=== PATIENT | male | born 1960 | race Two or more races ===

== ENCOUNTER 2023-05-29 09:26 | Outpatient (OUT) | payer MEDICARE, SELFPAY ==
--- NOTE | 2023-05-29 09:47 | XR_ITS ---
The [address] [address] Patient Name: KINDRA CHENG MRN: [id number] date: 1960 Sex: M Assigned Patient Location: LAB Current Patient Location: LAB Accession/Order Number: [id number] Exam Date: 05/29/2023 09:40 Report Date: 05/29/2023 10:29 At the request of: NICOLE WELLER Procedure: XR chest 2V EXAM: XR chest 2V HISTORY: Shortness Of Breath R06.02, Mild Asthma J45.20 COMPARISON: None. TECHNIQUE: PA and lateral views of the chest. FINDINGS: The cardiomediastinal silhouette is normal. No focal consolidation is identified. There is no pneumothorax. No pleural effusion is noted. The osseous structures are intact. XR/XR chest 2V IMPRESSION: No acute cardiopulmonary process. Electronically authenticated by: ANA PAULA VILLARREAL Date: 05/29/2023 10:29
[2023-05-29 10:11] LABS: Basophils Percent Auto 0.4 % (0.2-2.0); Eosinophils Absolute Auto 0.2 10^3/uL (0.0-0.7); Hematocrit 36.4 % (42.0-54.0); Hemoglobin 11.8 g/dL (14.0-18.0); Immature Granulocytes Abs Auto 0.02 10^3/uL (0.00-0.03); Immature Granulocytes Pct Auto 0.3 % (0.0-0.5); Lymphocytes Absolute Auto 1.2 10^3/uL (1.2-3.8); Lymphocytes Percent Auto 15.3 % (20.5-60.0); Mean Corpuscular HGB Conc 32.4 g/dL (29.9-35.2); Mean Corpuscular Volume 101.7 fL (80.0-94.0); Mean Platelet Volume 10.8 fL (9.5-13.5); Monocytes Absolute Auto 0.6 10^3/uL (0.3-0.8); Monocytes Percent Auto 7.4 % (1.7-12.0); Neutrophils Absolute Auto 5.9 10^3/uL (1.4-6.5); Neutrophils Percent Auto 73.6 % (43.0-75.0); Platelet Count 108 10^3/uL (150-450); Red Blood Count 3.58 10^6/uL (4.70-6.10); Red Cell Distribution Width 13.1 % (11.0-15.0)
[2023-05-29 10:55] LABS: Alanine Aminotransferase 32 U/L (16-63); Albumin Globulin Ratio 0.8; Albumin Level 3.3 g/dL (3.4-5.0); Alkaline Phosphatase 128 U/L (46-116); Anion Gap 12.9; Aspartate Amino Transferase 25 U/L (15-37); BUN Creatinine Ratio 21.8; Bilirubin Total 0.6 mg/dL (0.2-1.0); Calcium 8.7 mg/dL (8.5-10.1); Carbon Dioxide 27.6 mmol/L (21.0-32.0); Chloride 106 mmol/L (98-107); Estimated GFR (African America >60 (>=60); Estimated GFR (Non-African Ame >60 (>=60); Globulin 3.9 g/dL; Glucose 83 mg/dL (74-106); Potassium 4.5 mmol/L (3.5-5.1); Sodium 142 mmol/L (136-145); Total Protein 7.2 g/dL (6.4-8.2)
== END 2023-05-29 09:27 | disposition home or self-care (01) ==
LOC: LAB 09:29
PROVIDERS: PCP Family Medicine; Visit Provider Physician Assistant
DX: J45.20 Mild intermittent asthma, uncomplicated (principal); R06.02 Shortness of breath; I89.0 Lymphedema, not elsewhere classified
CPT/HCPCS: 36415; 71046; 80053; 83880; 85025

== ENCOUNTER 2024-02-11 15:58 | Outpatient (OUT) | payer MEDICARE, SELFPAY ==
--- NOTE | 2024-02-11 16:06 | XR_ITS ---
The [address] [address] Patient Name: KINDRA CHENG MRN: [id number] date: 1960 Sex: M Assigned Patient Location: [facility] Current Patient Location: Accession/Order Number: [id number] Exam Date: 02/11/2024 16:07 Report Date: 02/13/2024 06:39 At the request of: MUKUND TEMPLE Procedure: XR abdomen min 2V EXAMINATION: XR abdomen min 2V HISTORY: Slow transit constipation K59.01 COMPARISON: No relevant comparison available. FINDINGS: BOWEL GAS PATTERN: Non-obstructed. No appreciable abnormal dilation or significant stool burden. FREE AIR: None. CALCIFICATIONS: None significant. BONES: No fracture or visible bone lesion. OTHER: Negative. XR/XR abdomen min 2V IMPRESSION: 1. Evaluation is limited by patient body habitus. 2. No bowel obstruction or appreciable significant stool burden. Electronically authenticated by: DEBRA COLEMAN Date: 02/13/2024 06:39
== END 2024-02-11 15:59 | disposition home or self-care (01) ==
LOC: RAD 16:00
PROVIDERS: PCP Family Medicine; Visit Provider Family Medicine
DX: K59.01 Slow transit constipation (principal)
CPT/HCPCS: 74019

== ENCOUNTER 2024-04-30 11:25 | Emergency (ER) | payer MEDICARE, SELFPAY ==
[2024-04-30] VITALS (29 sets, daily range): BP systolic 92–120; BP diastolic 63–80; PULSE 103–124; RESP 12; TEMP 36.5; O2SAT 88–100
--- NOTE | 2024-04-30 11:33 | XR_ITS ---
The [address] [address] Patient Name: KINDRA CHENG MRN: [id number] date: 1960 Sex: M Assigned Patient Location: ER Current Patient Location: ER Accession/Order Number: [id number] Exam Date: 04/30/2024 11:40 Report Date: 04/30/2024 11:54 At the request of: CORINA SAUCEDA Procedure: XR chest 1V EXAM: Chest x-ray HISTORY: Shortness of breath COMPARISON: 05/29/2023 TECHNIQUE: Review of the chest FINDINGS: Heart and vascularity are unremarkable. Right lung is unremarkable. Increased markings are noted in the left perihilar region extending into the left mid and lower lung field. There is elevation left hemidiaphragm compared to the right. EKG leads overlie the chest. XR/XR chest 1V IMPRESSION: 1. Increased markings in the left perihilar region either due to atelectasis or an early left perihilar infiltrate. No consolidation. 2. Elevation left hemidiaphragm compared to the right. Electronically authenticated by: GARRETT URBANO Date: 04/30/2024 11:54
--- NOTE | 2024-04-30 11:33 | ECG_ITS ---
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
[2024-04-30] MEDS: LORAZEPAM 2 MG/ML VIAL 1 MG IV (11:41)
--- NOTE | 2024-04-30 11:48 | ED.SOB1 ---
HPI - SOB/Dyspnea General Chief Complaint: Shortness of Breath/Dyspnea Stated Complaint: SOB Time Seen by Provider: 04/30/24 11:32 Source: patient Mode of arrival: ambulance Limitations: no limitations History of Present Illness HPI Narrative: Patient presents to ED via EMS for shortness of breath. He said this is his worst it has ever been but he does get short of breath sometimes. He is on BiPAP at night. He has a history of CHF COPD and ascites. He had a paracentesis last week. He said everything is always done at [facility] and he requested to go there but he was brought here instead. He reports feeling anxious. Mild chest tightness and respiratory distress. Upon arrival EMS states he was 88% on room air. He was placed on 3 L nasal cannula and improved to 96%. Patient has been tachycardic. He has lower extremity edema which is chronic for him and he states they have been working on that. Denies abdominal pain. Alert and oriented, No fever Related Data Allergies Allergy/AdvReac Type Severity Reaction Status Date / Time tetanus and diphtheria Allergy Mild Unknown Verified 04/30/24 11:29 toxoids Review of Systems ROS Status of ROS 10 or more systems reviewed and unremarkable except as noted in history and below Exam Constitutional Vital Signs, click to edit/add: Last Vital Signs Temp 97.7 F 04/30/24 11:29 Pulse 124 H 04/30/24 11:29 Resp 21 H 04/30/24 12:09 BP 116/65 04/30/24 11:29 Pulse Ox 95 04/30/24 12:09 O2 Del Method BIPAP 04/30/24 12:09 O2 Flow Rate 40 04/30/24 12:09 FiO2 40 04/30/24 12:09 Course Vital Signs Vital signs: Vital Signs Temperature 97.7 F 04/30/24 11:29 Pulse Rate 124 H 04/30/24 11:29 Respiratory Rate 32 H 04/30/24 11:29 Blood Pressure 116/65 04/30/24 11:29 Pulse Oximetry 89 L 04/30/24 11:29 Oxygen Delivery Method Nasal Cannula 04/30/24 11:29 Oxygen Delivery Flow Rate 3 04/30/24 11:29 Temperature 97.7 F 04/30/24 11:29 Pulse Rate 124 H 04/30/24 11:29 Respiratory Rate 21 H 04/30/24 12:09 Blood Pressure 116/65 04/30/24 11:29 Pulse Oximetry 95 04/30/24 12:09 Oxygen Delivery Method BIPAP 04/30/24 12:09 Oxygen Delivery Flow Rate 40 04/30/24 12:09 Fraction of Inspired Oxygen 40 04/30/24 12:09 MDM - SOB/Dyspnea MDM Narrative Medical decision making narrative: Patient was in respiratory distress and immediately placed on BiPAP. He was also anxious and given some Ativan. After BiPAP and DuoNeb as well as Ativan he was feeling a little bit better. He reports that he gets everything done at [facility] including multiple paracentesis. He wants to be transferred over to [facility]. Patient has pneumonia and elevated lactate consistent with sepsis. Antibiotics were started in ED. Patient was stabilized and I spoke to Dr. Chen who will accept the patient over to [facility], ICU. Patient was comfortable with care plan for transfer Differential Diagnosis Differential diagnosis: Likely acute exacerbation of chronic obstructive airways disease, congestive heart failure, community acquired pneumonia and pulmonary embolism Medical Records Attestation: I reviewed the patient's medical records. Lab Data Attestation: I reviewed the patient's lab results. Labs: Lab Results 04/30/24 04/30/24 Range/Units 11:33 11:36 WBC 11.1 H (4.0-11.0) 10^3/uL RBC 3.07 L (4.70-6.10) 10^6/uL Hgb 9.6 L (14.0-18.0) g/dL Hct 31.0 L (42.0-54.0) % MCV 101.0 H (80.0-94.0) fL MCH 31.3 (25.9-34.0) pg MCHC 31.0 (29.9-35.2) g/dL RDW 15.9 H (11.0-15.0) % Plt Count 257 (150-450) 10^3/uL MPV 10.2 (9.5-13.5) fL Neut % (Auto) 67.1 (43.0-75.0) % Lymph % (Auto) 11.7 L (20.5-60.0) % [place] % (Auto) 8.4 (1.7-12.0) % Eos % (Auto) 12.0 H (0.9-7.0) % Baso % (Auto) 0.5 (0.2-2.0) % Neut # (Auto) 7.5 H (1.4-6.5) 10^3/uL Lymph # (Auto) 1.3 (1.2-3.8) 10^3/uL [place] # (Auto) 0.9 H (0.3-0.8) 10^3/uL Eos # (Auto) 1.3 H (0.0-0.7) 10^3/uL Baso # (Auto) 0.1 (0.0-0.1) 10^3/uL Abs Immat Gran (auto) 0.03 (0.00-0.03) 10^3/uL Imm/Tot Granulo (auto) 0.3 (0.0-0.5) % PT 11.4 (9.0-11.6) sec INR 1.08 Sodium 140 (136-145) mmol/L Potassium 4.6 (3.5-5.1) mmol/L Chloride 102 (98-107) mmol/L Carbon Dioxide 32.3 H (21.0-32.0) mmol/L Anion Gap 10.3 BUN 30.0 H (7.0-18.0) mg/dL Creatinine 1.89 H (0.70-1.30) mg/dL Est GFR ( Amer) 44 L (>=60) Est GFR (Non-Af Amer) 36 L (>=60) BUN/Creatinine Ratio 15.9 Glucose 151 H (74-106) mg/dL Lactate 3.1 H* (0.4-2.0) mmol/L Calcium 9.1 (8.5-10.1) mg/dL Total Bilirubin 1.3 H (0.2-1.0) mg/dL AST 43 H (15-37) U/L ALT 11 L (16-63) U/L Alkaline Phosphatase 122 H (46-116) U/L Troponin I High Sens 11.7 (4.0-76.1) pg/mL NT-Pro-B Natriuret Pep 460.0 (<=900.0) pg/mL Total Protein 7.8 (6.4-8.2) g/dL Albumin 2.7 L (3.4-5.0) g/dL Globulin 5.1 g/dL Albumin/Globulin Ratio 0.5 SARS-CoV-2 Ag (CV2AG) Negative (NEGATIVE) ABG Data Attestation: I have reviewed the pertinent ABG results. Imaging Data Chest x-ray: Radiologist's impression: ITS Impressions Chest X-Ray 04/30/24 11:33 IMPRESSION: 1. Increased markings in the left perihilar region either due to atelectasis or an early left perihilar infiltrate. No consolidation. 2. Elevation left hemidiaphragm compared to the right. Electronically authenticated by: GARRETT URBANO Date: 04/30/2024 11:54 ECG Data Attestation: I personally reviewed and interpreted this ECG as follows: Interpretation: EKG INTERPRETATION Time: []1130 Rate: []120 Rhythm: _ []Sinus tachycardia ST segments: _ []No acute ST elevation or depression T waves: _ [] Ectopy: _ [] P wave/VA interval: _ [] QRS interval: _ [] QT interval: _ [] Comparison: _ [] Comparison EKG date: [] Performed by: [self]Artifact Critical Care Time Critical Care Time Critical Care Time: Yes Total Critical Care Time: 89 Attestation: Respiratory distress, hypoxia Discharge Plan Discharge Chief Complaint: Shortness of Breath/Dyspnea Clinical Impression: Congestive heart failure, Community acquired pneumonia, OWEN (acute kidney injury), Anxiety, Pneumonia, Sepsis Patient Disposition: [facility] Time of Disposition Decision: 13:43 Discharge location: [facility] Condition: Serious Mode of Transportation: EMS Print Language: Nauruan Referrals: MUKUND TEMPLE [Primary Care Provider] - 1 week
[2024-04-30 11:59] LABS: Basophils Absolute Auto 0.1 10^3/uL (0.0-0.1); Basophils Percent Auto 0.5 % (0.2-2.0); Eosinophils Absolute Auto 1.3 10^3/uL (0.0-0.7); Hemoglobin 9.6 g/dL (14.0-18.0); Immature Granulocytes Abs Auto 0.03 10^3/uL (0.00-0.03); Immature Granulocytes Pct Auto 0.3 % (0.0-0.5); Lymphocytes Absolute Auto 1.3 10^3/uL (1.2-3.8); Lymphocytes Percent Auto 11.7 % (20.5-60.0); Mean Corpuscular Hemoglobin 31.3 pg (25.9-34.0); Mean Platelet Volume 10.2 fL (9.5-13.5); Monocytes Absolute Auto 0.9 10^3/uL (0.3-0.8); Monocytes Percent Auto 8.4 % (1.7-12.0); Neutrophils Absolute Auto 7.5 10^3/uL (1.4-6.5); Neutrophils Percent Auto 67.1 % (43.0-75.0); Platelet Count 257 10^3/uL (150-450); Red Blood Count 3.07 10^6/uL (4.70-6.10); Red Cell Distribution Width 15.9 % (11.0-15.0); White Blood Count 11.1 10^3/uL (4.0-11.0)
[2024-04-30 12:05] LABS: Internal Control Within Normal Limits; SARS-CoV-2 Ag NEGATIVE (NEGATIVE)
[2024-04-30] MEDS: IPRATROPIUM/ALBUTEROL SULFATE 3 ML AMPUL.NEB IH ×2 (12:13→12:54)
[2024-04-30 12:14] LABS: INR 1.08; Prothrombin Time 11.4 sec (9.0-11.6)
[2024-04-30 12:24] LABS: Anion Gap 10.3
[2024-04-30 12:28] LABS: Alanine Aminotransferase 11 U/L (16-63); Albumin Globulin Ratio 0.5; Albumin Level 2.7 g/dL (3.4-5.0); Alkaline Phosphatase 122 U/L (46-116); Aspartate Amino Transferase 43 U/L (15-37); BUN Creatinine Ratio 15.9; Bilirubin Total 1.3 mg/dL (0.2-1.0); Calcium 9.1 mg/dL (8.5-10.1); Carbon Dioxide 32.3 mmol/L (21.0-32.0); Chloride 102 mmol/L (98-107); Estimated GFR (African America 44 (>=60); Estimated GFR (Non-African Ame 36 (>=60); Globulin 5.1 g/dL; Glucose 151 mg/dL (74-106); Potassium 4.6 mmol/L (3.5-5.1); Sodium 140 mmol/L (136-145); Total Protein 7.8 g/dL (6.4-8.2); Troponin I High Sensitivity 11.7 pg/mL (4.0-76.1)
[2024-04-30 12:29] LABS: Lactate/Lactic Acid 3.1 mmol/L (0.4-2.0)
[2024-04-30] MEDS: PIPERACILLIN SODIUM/TAZOBACTAM 3.375 GM in 0.9 % SODIUM CHLORIDE 50 ML IV (13:09)
[2024-04-30] MEDS: VANCOMYCIN HCL 2,000 MG in 0.9 % SODIUM CHLORIDE 500 ML 250 MG IV (13:10)
[2024-05-01 07:39] LABS: A. calcoaceticus-baumannii Cpx NOT DETECTED (NOT DETECTE); Bacteroides fragilis NOT DETECTED (NOT DETECTE); Candida albicans NOT DETECTED (NOT DETECTE); Candida auris NOT DETECTED (NOT DETECTE); Candida glabrata NOT DETECTED (NOT DETECTE); Candida krusei NOT DETECTED (NOT DETECTE); Candida parapsilosis NOT DETECTED (NOT DETECTE); Candida tropicalis NOT DETECTED (NOT DETECTE); Cryptococcus neoformans/gattii NOT DETECTED (NOT DETECTE); Enterobacter cloacae complex NOT DETECTED (NOT DETECTE); Enterobacterales NOT DETECTED (NOT DETECTE); Enterococcus faecalis NOT DETECTED (NOT DETECTE); Enterococcus faecium NOT DETECTED (NOT DETECTE); Haemophilus influenzae NOT DETECTED (NOT DETECTE); Klebsiella aerogenes NOT DETECTED (NOT DETECTE); Klebsiella pneumoniae group NOT DETECTED (NOT DETECTE); Listeria monocytogenes NOT DETECTED (NOT DETECTE); Neisseria meningitidis NOT DETECTED (NOT DETECTE); Proteus spp. NOT DETECTED (NOT DETECTE); Pseudomonas aeruginosa NOT DETECTED (NOT DETECTE); Salmonella spp. NOT DETECTED (NOT DETECTE); Serratia marcescens NOT DETECTED (NOT DETECTE); Staphylococcus lugdunensis NOT DETECTED (NOT DETECTE); Stenotrophomonas maltophilia NOT DETECTED (NOT DETECTE); Streptococcus agalactiae NOT DETECTED (NOT DETECTE); Streptococcus pneumoniae NOT DETECTED (NOT DETECTE); Streptococcus pyogenes NOT DETECTED (NOT DETECTE); Streptococcus spp. NOT DETECTED (NOT DETECTE)
[2024-05-01 08:52] LABS: Staphylococcus epidermidis DETECTED (NOT DETECTE); Staphylococcus spp. DETECTED (NOT DETECTE); mecA/C DETECTED (NOT DETECTE)
[2024-05-01 09:01] LABS: Source Blood
== END 2024-04-30 15:05 | disposition short-term general hospital (02) ==
PROVIDERS: Emergency Provider Emergency Medicine; PCP Family Medicine
DX: A41.9 Sepsis, unspecified organism (principal); I50.9 Heart failure, unspecified; J18.9 Pneumonia, unspecified organism; N17.9 Acute kidney failure, unspecified; F41.9 Anxiety disorder, unspecified; J44.0 Chronic obstructive pulmonary disease with (acute) lower respiratory infection
CPT/HCPCS: 36415; 71045; 80053; 83605; 83880; 84484; 85025; 85610; 87040; 87150; 87186; 87811; 93005; 94640; 94660; 96365; 96366; 96368; 96375; 99285; J2060; J2543; J3370

== ENCOUNTER 2024-06-01 19:55 | Inpatient (IN) | payer MEDICARE, SELFPAY ==
[2024-06-01 20:00] VITALS: O2SAT 98
[2024-06-01 20:04] VITALS: BP 110/68; PULSE 112; TEMP 36.7; O2SAT 98; BMI 38.7
--- NOTE | 2024-06-01 20:27 | ECG_ITS ---
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
[2024-06-01] MEDS: MORPHINE SULFATE 4 MG/ML VIAL IV (20:36)
[2024-06-01 20:40] VITALS: PULSE 102
--- NOTE | 2024-06-01 20:42 | ED.GENADUL1 ---
HPI HPI - General Adult General Chief complaint: Dental/Oral Stated complaint: Sore Throat, Pain Time Seen by Provider: 06/01/24 20:21 Source: patient Mode of arrival: ambulance Limitations: no limitations History of Present Illness HPI narrative: 63-year-old male presents for mouth pain and inability to eat and drink. This started a few days ago and it has getting worse. He has lymphoma and has had 1 course of chemotherapy which was performed at the [facility]. He has not yet seen his local oncologist. He has sores in his mouth and his gave him some medicine recommended by the pharmacist that was [id number] but it did not help and he is not able to eat and drink. He was also recently talking about seeing his but he does not remember that. He does not complain of a headache or fever or vomiting. Related Data Home Medications ?Medication ?Instructions ?Recorded ?Confirmed acyclovir 400 mg tablet 400 mg PO Q12H 06/01/24 06/01/24 albuterol sulfate 90 mcg/actuation inhalation 06/01/24 aerosol inhaler allopurinol 300 mg tablet 300 mg PO DAILY 06/01/24 06/01/24 atorvastatin 40 mg tablet 40 mg PO DAILY 06/01/24 06/01/24 bumetanide 1 mg tablet 1 mg PO DAILY 06/01/24 06/01/24 carvedilol 3.125 mg tablet 3.125 mg PO Q12H 06/01/24 06/01/24 ciprofloxacin HCl 500 mg tablet 500 mg PO BID 06/01/24 06/01/24 diclofenac sodium 1 % gel topical 2 g topical QID 06/01/24 06/01/24 kit docusate sodium 100 mg capsule 100 mg PO BID 06/01/24 06/01/24 (Stool Softener) folic acid 1 mg tablet 1 mg PO DAILY 06/01/24 06/01/24 guaifenesin 600 mg tablet, 600 mg PO BID 06/01/24 06/01/24 extended release 12 hr (Mucinex) hydrocodone 10 mg-acetaminophen 1 tab PO Q8H PRN pain 06/01/24 06/01/24 325 mg tablet insulin degludec 200 unit/mL (3 30 unit subcut DAILY 06/01/24 06/01/24 mL) subcutaneous pen ipratropium 0.5 mg-albuterol 3 mg 3 ml inhalation Q6H 06/01/24 06/01/24 (2.5 mg base)/3 mL nebulization soln midodrine 10 mg tablet 10 mg PO TID 06/01/24 06/01/24 ondansetron HCl 8 mg tablet 8 mg PO Q8H PRN nausea and vomiting 06/01/24 06/01/24 pantoprazole 40 mg tablet,delayed 40 mg PO DAILY 06/01/24 06/01/24 release prochlorperazine maleate 10 mg 10 mg PO .Q 4 hours PRN nausea and 06/01/24 06/01/24 tablet vomiting zarxo 0.8 ml subcut DAILY 06/01/24 06/01/24 Allergies Allergy/AdvReac Type Severity Reaction Status Date / Time tetanus and diphtheria Allergy Mild Unknown Verified 06/01/24 20:18 toxoids Opioid HPI Opioid Management Most Recent Opioid Data: Last Pain Scale 10 06/01/24 21:23 06/01/24 Last ED Pain Assessment 06/01/24 20:00 Review of Systems ROS Narrative A ten point review of systems is negative except as noted above. PFSH PFSH Social History Little interest or pleasure in doing things: not at all Feeling down, depressed, or hopeless: not at all Exam Narrative Exam Narrative: Nurses note and vital signs reviewed and patient is not hypoxic. General: The patient appears weak and tired. Skin: Warm, dry, no pallor noted. There is no rash noted. Head: Normocephalic, atraumatic Eye: Normal conjunctiva, no drainage Ears, Nose, Mouth, and Throat: White plaques are noted in the pharyngeal area. The oral mucosa is somewhat dry. Cardiovascular: Regular Rate and Rhythm Respiratory: Patient is in no distress, no accessory muscle use, lungs are clear to auscultation, no wheezing, rales or rhonchi Back: non-tender GI: Obese soft and nontender Musculoskeletal: The patient has no evidence of calf tenderness, no pitting edema, symmetrical pulses noted bilaterally Neurological: A&O, normal speech Psychiatric: Cooperative Constitutional Vital Signs, click to edit/add: Last Vital Signs Temp 98.1 F 06/01/24 20:04 Pulse 112 H 06/01/24 20:04 Resp 20 06/01/24 20:04 BP 110/68 06/01/24 20:04 Pulse Ox 98 06/01/24 20:04 O2 Del Method Nasal Cannula 06/01/24 20:04 O2 Flow Rate 2 06/01/24 20:04 Course Vital Signs Vital signs: Vital Signs Pulse Oximetry 98 06/01/24 20:00 Oxygen Delivery Method Nasal Cannula 06/01/24 20:00 Oxygen Delivery Flow Rate 2 06/01/24 20:00 Temperature 98.1 F 06/01/24 20:04 Pulse Rate 112 H 06/01/24 20:04 Respiratory Rate 20 06/01/24 20:04 Blood Pressure 110/68 06/01/24 20:04 Pulse Oximetry 98 06/01/24 20:04 Oxygen Delivery Method Nasal Cannula 06/01/24 20:04 Oxygen Delivery Flow Rate 2 06/01/24 20:04 Medical Decision Making MDM Narrative Medical decision making narrative: The patient is dehydrated secondary to poor oral intake. He has mouth lesions and appears to have thrush. BUN and creatinine are elevated well over his baseline. He was given IV fluids and will be admitted for rehydration. He was given morphine and Dilaudid for pain. Findings are discussed with the patient and his family. Differential Diagnosis Differential Diagnosis: Acute kidney injury, dehydration, thrush Lab Data Lab results reviewed: Yes I reviewed the patient's lab results Labs: Lab Results 06/01/24 Range/Units 21:02 WBC 0.1 L* (4.0-11.0) 10^3/uL RBC 2.34 L (4.70-6.10) 10^6/uL Hgb 7.2 L (14.0-18.0) g/dL Hct 22.8 L* (42.0-54.0) % MCV 97.4 H (80.0-94.0) fL MCH 30.8 (25.9-34.0) pg MCHC 31.6 (29.9-35.2) g/dL RDW 14.8 (11.0-15.0) % Plt Count 43 L (150-450) 10^3/uL MPV 11.6 (9.5-13.5) fL Seg Neuts % (Manual) 7.0 L (43.0-75.0) Lymphocytes % (Manual) 69.0 H (20.5-60.0) % Atypical Lymphs % (Man) 3.0 % Monocytes % (Manual) 7.0 (1.7-12.0) % Eosinophils % (Manual) 7.0 (0.9-7.0) % Basophils % (Manual) 7.0 H (0.2-2.0) % Neutrophils # (Manual) 0.00 L (1.4-6.5) 10^3/uL Lymphocytes # (Manual) 0.06 L (1.20-3.80) 10^3/uL Abs Atypical Lymphs Man 0.00 Monocytes # (Manual) 0.00 L (0.30-0.80) 10^3/uL Eosinophils # (Manual) 0.00 (0.00-0.70) 10^3/uL Basophils # (Manual) 0.00 (0.00-0.10) 10^3/uL Hypochromasia 2+ Anisocytosis 3+ Schistocytes 2+ Sodium 133 L (136-145) mmol/L Potassium 5.6 H (3.5-5.1) mmol/L Chloride 101 (98-107) mmol/L Carbon Dioxide 20.9 L (21.0-32.0) mmol/L Anion Gap 16.7 BUN 52.0 H (7.0-18.0) mg/dL Creatinine 3.91 H (0.70-1.30) mg/dL Est GFR ( Amer) 19 L (>=60 mL/min/1.73m^2) Est GFR (Non-Af Amer) 16 L (>=60 mL/min/1.73m^2) BUN/Creatinine Ratio 13.3 Glucose 210 H (74-106) mg/dL Calcium 9.1 (8.5-10.1) mg/dL ECG Data Attestation: I personally reviewed and interpreted this ECG as follows: (EKG on my interpretation shows sinus rhythm with a rate of 102.) Discharge Plan Discharge Chief Complaint: Dental/Oral Clinical Impression: Acute kidney injury, Thrush Patient Disposition: Admitted As Inpatient Time of Disposition Decision: 21:44 Condition: Fair
[2024-06-01] MEDS: 0.9 % SODIUM CHLORIDE 1,000 ML 200 ML IV (20:43)
[2024-06-01 21:20] LABS: Hemoglobin 7.2 g/dL (14.0-18.0); Mean Corpuscular HGB Conc 31.6 g/dL (29.9-35.2); Mean Corpuscular Hemoglobin 30.8 pg (25.9-34.0); Mean Corpuscular Volume 97.4 fL (80.0-94.0); Mean Platelet Volume 11.6 fL (9.5-13.5); Platelet Count 43 10^3/uL (150-450); Red Blood Count 2.34 10^6/uL (4.70-6.10); Red Cell Distribution Width 14.8 % (11.0-15.0)
[2024-06-01] MEDS: HYDROMORPHONE HCL 1 MG/ML CARTRIDGE IV (21:23)
[2024-06-01 21:24] LABS: White Blood Count 0.1 10^3/uL (4.0-11.0)
[2024-06-01 21:25] LABS: Hematocrit 22.8 % (42.0-54.0)
--- NOTE | 2024-06-01 21:26 | PC.NURSE ---
lab called with critical results: WBC=0.1 and Hct= 22.8, Dr Bess and patient's nurse informed of these critical
--- NOTE | 2024-06-01 21:29 | PC.NURSE ---
Oral mucosa raw red with exudate
[2024-06-01 21:33] LABS: Anion Gap 16.7; BUN Creatinine Ratio 13.3; Calcium 9.1 mg/dL (8.5-10.1); Carbon Dioxide 20.9 mmol/L (21.0-32.0); Chloride 101 mmol/L (98-107); Estimated GFR (African America 19 (>=60 mL/min/1.73m^2); Estimated GFR (Non-African Ame 16 (>=60 mL/min/1.73m^2); Glucose 210 mg/dL (74-106); Potassium 5.6 mmol/L (3.5-5.1); Sodium 133 mmol/L (136-145)
[2024-06-01 21:43] LABS: Lymphocytes Absolute Manual 0.06 10^3/uL (1.20-3.80)
[2024-06-01 21:44] LABS: Anisocytosis 3+
[2024-06-01 21:45] LABS: Hypochromasia 2+; Schistocytes 2+
[2024-06-01 21:57] VITALS: BP 117/76; PULSE 113; TEMP 36.6; O2SAT 91
[2024-06-01 22:56] VITALS: BMI 38.3
[2024-06-01] MEDS: NYSTATIN 500,000 UNIT/5 ML ORAL.SUSP 500000 UNIT PO (23:10)
[2024-06-02] VITALS (8 sets, daily range): BP systolic 101–111; BP diastolic 59–70; PULSE 109–114; TEMP 36.3–37.1; O2SAT 90–97
[2024-06-02] MEDS: lidocaine HCL 15 ML, MAG HYDROX/ALUMINUM HYD/SIMETH 30 ML, diphenhydrAMINE HCL 25 MG PO ×4 (00:07→12:59)
[2024-06-02] MEDS: HYDROMORPHONE HCL 1 MG/ML CARTRIDGE 0.5 MG IVP ×2 (01:19→05:24)
[2024-06-02] MEDS: 0.9 % SODIUM CHLORIDE 1,000 ML 200 ML IV (03:14)
[2024-06-02 04:30] LABS: Bilirubin Urine SMALL (NEGATIVE); Blood Urine TRACE-I (NEGATIVE); Clarity Urine CLEAR (CLEAR); Color Urine DK. YELLOW (YELLOW); Glucose Urine UA NEGATIVE (NEGATIVE); Ketones Urine TRACE mg/dL (NEGATIVE); Leukocyte Esterase Urine TRACE (NEGATIVE); Nitrite Urine NEGATIVE (NEGATIVE); Protein Urine TRACE mg/dL (NEG/TRACE); pH Urine 5.5 (5.0-9.0)
[2024-06-02 04:37] LABS: Bacteria Urine SMALL #/HPF (NONE SEEN); Cast Seen? NONE SEEN #/LPF (NONE SEEN); Crystals Seen? None Seen #/HPF (None Seen); Mucus Urine NONE SEEN (NONE SEEN); RBC Urine 0-2 #/HPF (0-2); Squamous Epithelial Cell Urine FEW #/LPF (NONE/RARE); Transitional Epi Cells Urine FEW #/LPF (NONE SEEN); Urine Culture Indicated YES
[2024-06-02] MEDS: NYSTATIN 500,000 UNIT/5 ML ORAL.SUSP 500000 UNIT PO (05:24)
[2024-06-02 05:54] LABS: Eosinophils Percent Auto 7.7 % (0.9-7.0); Hemoglobin 7.2 g/dL (14.0-18.0); Lymphocytes Absolute Auto 0.1 10^3/uL (1.2-3.8); Lymphocytes Percent Auto 76.9 % (20.5-60.0); Mean Corpuscular Hemoglobin 30.4 pg (25.9-34.0); Mean Corpuscular Volume 97.9 fL (80.0-94.0); Mean Platelet Volume 11.8 fL (9.5-13.5); Monocytes Percent Auto 7.7 % (1.7-12.0); Neutrophils Percent Auto 7.7 % (43.0-75.0); Platelet Count 38 10^3/uL (150-450); Red Blood Count 2.37 10^6/uL (4.70-6.10); Red Cell Distribution Width 14.8 % (11.0-15.0)
[2024-06-02 05:57] LABS: Hematocrit 23.2 % (42.0-54.0); White Blood Count 0.1 10^3/uL (4.0-11.0)
[2024-06-02 06:09] LABS: Alanine Aminotransferase 8 U/L (16-63); Albumin Globulin Ratio 0.4; Alkaline Phosphatase 121 U/L (46-116); Anion Gap 17.9; Aspartate Amino Transferase 14 U/L (15-37); BUN Creatinine Ratio 13.3; Bilirubin Total 2.9 mg/dL (0.2-1.0); Calcium 8.9 mg/dL (8.5-10.1); Carbon Dioxide 18.7 mmol/L (21.0-32.0); Chloride 102 mmol/L (98-107); Estimated GFR (African America 18 (>=60 mL/min/1.73m^2); Estimated GFR (Non-African Ame 15 (>=60 mL/min/1.73m^2); Globulin 5.4 g/dL; Glucose 177 mg/dL (74-106); Potassium 5.6 mmol/L (3.5-5.1); Sodium 133 mmol/L (136-145); Total Protein 7.4 g/dL (6.4-8.2)
--- NOTE | 2024-06-02 06:53 | US_ITS ---
[place] [address] Patient Name: KINDRA CHENG MRN: [id number] date: 1960 Sex: M Assigned Patient Location: MS Current Patient Location: MS Accession/Order Number: [id number] Exam Date: 06/02/2024 08:45 Report Date: 06/02/2024 09:45 At the request of: SHAIKH AVERY Procedure: US renal BI EXAMINATION: US renal BI HISTORY: OWEN COMPARISON: No relevant comparison available. TECHNIQUE: Ultrasound examination was performed of the bladder. FINDINGS: Right Kidney: Normal in size, contour and echotexture. The cortex measures 1.3 cm. No solid cortical mass, hydronephrosis or obstructing nephrolithiasis. Height: 4.29 cm Length: 10.03 cm Width: 5.22 cm Left Kidney: Normal in size, contour and echotexture. The cortex measures 1.3 cm. No solid cortical mass, hydronephrosis or obstructing nephrolithiasis Height: 4.82 cm Length: 9.83 cm Width: 4.80 cm Nondistended urinary bladder measuring 1.9 x 4.1 x 5.8 cm, volume of 31 mL Moderate ascites US/US renal BI IMPRESSION: No acute abnormality of the kidneys Moderate ascites Electronically authenticated by: GARRETT VASQUEZ Date: 06/02/2024 09:45
[2024-06-02] MEDS: 0.9 % SODIUM CHLORIDE 1,000 ML 1000 ML IV ×3 (07:47→14:37)
[2024-06-02] MEDS: HYDROMORPHONE HCL 0.5 MG/0.5 ML SYRINGE IV (09:08)
--- NOTE | 2024-06-02 10:33 | SWNOTE1 ---
Doctor is looking in to transferring patient to [facility]. Nurse had messaged SW that pt's sister called to speak about rehab. SW to call and update her about pt likely being transferred.
--- NOTE | 2024-06-02 10:38 | SWNOTE1 ---
SW called pt's sister, Geovanna, and updated her with plans of transfer. At this time she did not have any further questions for VIDA.
--- NOTE | 2024-06-02 10:41 | CM.NOTE ---
Rounds made with Dr. Chacon. Potential transfer to [facility] discussed with Mr. Hammer. Await further plan of care.
[2024-06-02] MEDS: LACTATED RINGER'S SOLUTION 1,000 ML 125 ML IV (10:42)
[2024-06-02 10:47] LABS: Uric Acid 5.2 mg/dL (3.5-7.2)
[2024-06-02] MEDS: FENTANYL 50 MCG/HR PATCH.TD72 TD (10:50)
[2024-06-02 10:57] LABS: Glucometer 197 mg/dL (74-106)
[2024-06-02] MEDS: INSULIN ASPART 300 UNIT/3 ML PEN SUBQ (11:01)
--- NOTE | 2024-06-02 11:34 | SWNOTE1 ---
Important Message from [employer] reviewed and discussed with patient. Pt. verbalized understanding and signed the form. Original given to patient and copy placed in patient?s chart.
--- NOTE | 2024-06-02 11:41 | P.HP_ITS ---
HPI H&P: HPI History of Present Illness Chief complaint: Sore Throat, Pain; ACUTE KIDNEY INJURY, THRUSH Narrative: 63 y o male who was recently diagnosed with B Cell lymphoma and started on Combination chemo and was discharged home on 05/28/24. He developed mild OWEN with chemo but his renal function stabilized and most recent Cr was 2.0. He also developed severe neutropenia/pancytopenia and was receiving Filgrastim for it. Patient reports persistent nausea, vomiting, inability to eat or drink anything due to severe pain from mucositis from chemotherapy and came to ED last night when his symptoms persisted and he was unable to tolerate any food/liquid orally. He also reports multiple episodes of watery diarrhea and reports that he is now burning pain in his anorectal region from persistent/recurrent diarrhea. Work up in ED revealed severe neutropenia, pancytopenia and OWEN with serum cr of 3.9 that has no worsened to 4.2 on morning labs with no urine output since admission. He also has hyperkalemia likely from OWEN. While I was evaluating him, he had to suddenly sit on a commode where he had large quantity of watery stool. Denies seeing blood in stool. Denies fever but reports feeling tired/weak and worn out. Opioid HPI Opioid Management Most Recent Pain and Opioid Data: Last Pain Scale 8 06/02/24 10:56 06/02/24 Last Pain Assessment 06/02/24 11:59 Last ED Pain Assessment 06/01/24 20:00 Last MAR Pain Assessment 06/02/24 10:02 Last ORT Total Score 0 06/01/24 22:56 06/01/24 Last ORT Risk Category Low Risk 06/01/24 22:56 06/01/24 Review of Systems ROS Status of ROS 10 or more systems reviewed and unremark able except as noted in history and below [facility] [place] [facility] History (Updated 06/02/24 @ 11:45 by Shaikh Oswaldo MD) Chronic respiratory failure with hypoxia ?J96.11 - Chronic respiratory failure with hypoxia (ICD-10) CKD stage 3a, GFR 45-59 ml/min ?N18.31 - Chronic kidney disease, stage 3a (ICD-10) (HFpEF) heart failure with preserved ejection fraction ?I50.30 - Unspecified diastolic (congestive) heart failure (ICD-10) Liver cirrhosis ?K74.60 - Unspecified cirrhosis of liver (ICD-10) Low blood pressure ?I95.9 - Hypotension, unspecified (ICD-10) Diabetes ?E11.9 - Type 2 diabetes mellitus without complications (ICD-10) Surgical History (Updated 06/01/24 @ 22:56 by Krista Gan) History of appendectomy ?Z90.49 - Acquired absence of other specified parts of digestive tract (ICD- 10) H/O hernia repair ?Z98.890 - Other specified postprocedural states (ICD-10) ?Z87.19 - Personal history of other diseases of the digestive system (ICD-10) Family History (Updated 06/01/24 @ 22:52 by Krista Gan) Grandfather Family history of diabetes mellitus Father Family history of diabetes mellitus Social History (Updated 06/01/24 @ 22:54 by Krista Gan) Within the past year, how often did you have a drink containing alcohol: never Score interpretation: A score less than 4 is consistent with normal alcohol consumption. Smoking status: Former smoker Non-prescribed substance use: denies use Previous occupational history: disabled Highest level of school completed/degree received: high school graduate Are you now , , , , never or living with a partner: In a typical week, how many times do you talk on the telephone with family, friends, or neighbors: 3 or more times per week How often do you get together with friends or relatives: 3 or more times per week How often do you attend scientologist or congregation services: never Do you belong to any clubs or organizations such as scientologist groups unions, fraternal or athletic groups, or school groups: no Total score: 1 Score interpretation: A score of less than or equal to 1 indicates the most socially isolated. Little interest or pleasure in doing things: not at all Feeling down, depressed, or hopeless: not at all Feel stressed/tense/nervous/anxious/difficulty sleeping: not at all Do you think of yourself as: straight/heterosexual Gender Identity: male Meds Home Medications and Allergies Home Medications ?Medication ?Instructions ?Recorded ?Confirmed ?Type acyclovir 400 mg tablet 400 mg PO Q12H 06/01/24 06/01/24 History albuterol sulfate 90 mcg/actuation 2 puff inhalation Q4H PRN 06/01/24 06/02/24 History aerosol inhaler shortness of breath or wheezing atorvastatin 40 mg tablet 40 mg PO QPM 06/01/24 06/02/24 History carvedilol 3.125 mg tablet 3.125 mg PO Q12H 06/01/24 06/01/24 History ciprofloxacin HCl 500 mg tablet 500 mg PO DAILY 06/01/24 06/02/24 History diclofenac sodium 1 % gel topical 2 g topical QID 06/01/24 06/01/24 History kit docusate sodium 100 mg capsule 100 mg PO BID 06/01/24 06/01/24 History (Stool Softener) folic acid 1 mg tablet 1 mg PO DAILY 06/01/24 06/01/24 History guaifenesin 600 mg tablet, 600 mg PO BID 06/01/24 06/01/24 History extended release 12 hr (Mucinex) hydrocodone 10 mg-acetaminophen 1 tab PO Q8H PRN pain 06/01/24 06/01/24 History 325 mg tablet insulin degludec 200 unit/mL (3 30 unit subcut DAILY 06/01/24 06/01/24 History mL) subcutaneous pen ipratropium 0.5 mg-albuterol 3 mg 3 ml inhalation Q6H 06/01/24 06/01/24 History (2.5 mg base)/3 mL nebulization soln midodrine 10 mg tablet 10 mg PO .QD 06/01/24 06/02/24 History ondansetron HCl 8 mg tablet 8 mg PO Q8H PRN nausea and vomiting 06/01/24 06/01/24 History pantoprazole 40 mg tablet,delayed 40 mg PO DAILY 06/01/24 06/01/24 History release prochlorperazine maleate 10 mg 10 mg PO Q4H PRN nausea and 06/01/24 06/02/24 History tablet vomiting zarxio 0.8 ml subcut DAILY 06/01/24 06/02/24 History alprazolam 0.5 mg disintegrating 0.5 mg PO BID PRN anxiety 06/02/24 06/02/24 History tablet furosemide 40 mg tablet 40 mg PO BID 06/02/24 06/02/24 History Allergies Allergy/AdvReac Type Severity Reaction Status Date / Time tetanus and diphtheria Allergy Mild Unknown Verified 06/01/24 20:18 toxoids Exam Constitutional Vital Signs, click to edit/add: Last Vital Signs Temp 97.7 F 06/02/24 07:55 Pulse 113 H 06/02/24 09:44 Resp 20 06/02/24 07:55 BP 111/70 06/02/24 07:55 Pulse Ox 95 06/02/24 09:44 O2 Del Method Nasal Cannula 06/02/24 07:55 O2 Flow Rate 2 06/02/24 07:55 General appearance: cooperative, lethargic, ill appearing and frail appearing [facility] Common normals: normocephalic and head/scalp atraumatic Mouth: oral and palatal mucosa abnormal (severe mucositis) erythematous, ulceration and white patches Respiratory Common normals: normal respiratory effort, no use of accessory muscles and clear to auscultation bilaterally Effort & inspection: able to speak in complete sentences and tachypneic Cardio Common normals: regular rhythm, S1 normal heart sound and S2 normal heart sound Rate: tachycardic GI Common normals: Normal to inspection, nondistended, normoactive bowel sounds present, soft to palpation, non-tender and no hepatosplenomegaly Extremity Common normals: normal to inspection and full ROM Neuro Common normals: oriented x3, moves all extremities, no focal motor deficits and no sensory deficits noted Psych Common normals: mental status grossly normal, thought process normal, denies homicidal ideation and denies suicidal ideation Results Labs Labs: Short CBC 06/01/24 06/02/24 Range/Units 21:02 05:30 WBC 0.1 L* 0.1 L* (4.0-11.0) 10^3/uL Hgb 7.2 L 7.2 L (14.0-18.0) g/dL Hct 22.8 L* 23.2 L* (42.0-54.0) % Plt Count 43 L 38 L (150-450) 10^3/uL BMP 06/01/24 06/02/24 21:02 05:30 Sodium 133 L 133 L Potassium 5.6 H 5.6 H Chloride 101 102 Carbon Dioxide 20.9 L 18.7 L BUN 52.0 H 56.0 H Creatinine 3.91 H 4.20 H Glucose 210 H 177 H Calcium 9.1 8.9 Liver Function 06/02/24 Range/Units 05:30 Total Bilirubin 2.9 H (0.2-1.0) mg/dL AST 14 L (15-37) U/L ALT 8 L (16-63) U/L Alkaline Phosphatase 121 H (46-116) U/L Albumin 2.0 L (3.4-5.0) g/dL Urine 06/02/24 Range/Units 04:20 Urine Color Dk. yellow (YELLOW) Urine Clarity Clear (CLEAR) Urine pH 5.5 (5.0-9.0) Ur Specific [place] 1.020 (1.005-1.025) Urine Protein Trace (NEG/TRACE) mg/dL Urine Glucose (UA) Negative (NEGATIVE) mg/dL Assessment and Plan Assessment and Plan (1) Severe neutropenia: Assessment and Plan: Due to chemotherapy. On neutropenic precautions. D/c acyclovir/bactrim due to severe OWEN. Switch to IV cipro for antimicrobial px. Consulted Oncology. (2) Pancytopenia due to antineoplastic chemotherapy: Assessment and Plan: Due to chemotherapy. No evidence of active bleeding. Hb above transfusion threshold. On neutropenic precautions (3) Mucositis (ulcerative) due to antineoplastic therapy: Assessment and Plan: Severe mucositis, unable to tolerate PO diet. Ice chips ordered. Ordered fentanyl patch for severe intractable pain along with IV diluadid as needed. (4) Acute kidney injury: Assessment and Plan: Has oligo uric ATN with no UO since admission. Baseline cr is 2. Serum today worsening despite aggressive fluid resuscitation. Continues to have little/no PO intake, with diarrhea. Monitor UO closely. US renal - no obs uropathy noted. (5) Hyperkalemia: Assessment and Plan: due to OWEN. Repeat BMP, if persistent will give Insulin/dextrose. (6) B-cell lymphoma: Assessment and Plan: New diagnosis, recently started on chemotherapy. Qualifiers: B-cell lymphoma type: diffuse large B-cell Lymphoma site: intra- abdominal nodes Qualified Code(s): C83.33 - Diffuse large B-cell lymphoma, intra-abdominal lymph nodes (7) Liver cirrhosis: Assessment and Plan: Prior hx of liver cirrhosis. At high risk of infection from Liver cirrhosis, neutropenia. Unable to give bactrim/acyclovir. Ordered IV cipro once daily for px as unable to take PO. Qualifiers: Ascites presence: without ascites Hepatic cirrhosis type: unspecified hepatic cirrhosis Qualified Code(s): K74.60 - Unspecified cirrhosis of liver (8) (HFpEF) heart failure with preserved ejection fraction: Assessment and Plan: Dehydrated due to no PO intake, diarrhea. on IVF. Qualifiers: Heart failure chronicity: chronic Qualified Code(s): I50.32 - Chronic diastolic (congestive) heart failure (9) CKD stage 3a, GFR 45-59 ml/min: Assessment and Plan: Baseline Cr is 1.8-2.0 Has ATN/OWEN. On IVF. Monitor UO, serum electrolytes and renal fx closely. (10) Chronic respiratory failure with hypoxia: Assessment and Plan: On 2 L O2 via NC chronically. Unchanged. Monitor. Plan Patient will need higher level of care given the complexity of his current illness as our facility does not have Nephrology or Oncology service. He is at high risk of poor outcome, including and requires close inpatient mon itoring and treatment. I initialed transfer request for him to [facility] as that's where he was previously admitted and his Oncologist is.
[2024-06-02 12:19] LABS: Anion Gap 16.4; Calcium 8.4 mg/dL (8.5-10.1); Carbon Dioxide 20.7 mmol/L (21.0-32.0); Chloride 104 mmol/L (98-107); Estimated GFR (African America 18 (>=60 mL/min/1.73m^2); Estimated GFR (Non-African Ame 15 (>=60 mL/min/1.73m^2); Glucose 185 mg/dL (74-106); Sodium 135 mmol/L (136-145)
[2024-06-02 12:23] LABS: Potassium 6.1 mmol/L (3.5-5.1)
[2024-06-02] MEDS: HYDROMORPHONE HCL 1 MG/ML CARTRIDGE IV (12:58)
[2024-06-02] MEDS: CIPROFLOXACIN IN 5 % DEXTROSE 400 MG/200 ML PREMIX 200 MG IV (13:16)
[2024-06-02 13:18] LABS: C. Difficile PCR NEGATIVE
[2024-06-02] MEDS: DEXTROSE 50 %-WATER 25 GM/50 ML SYRINGE IV (14:37)
[2024-06-02] MEDS: INSULIN REGULAR, HUMAN (100 UNIT/ML) 10 ML MDV 10 UNIT IV (14:42)
--- NOTE | 2024-06-02 14:56 | PC.NURSE ---
report called to Marcos at [facility]
== END 2024-06-02 15:45 | disposition short-term general hospital (02) | DRG 682 ==
LOC: ER 22:49 → MS 22:49
PROVIDERS: Registered Nurse; Admitting Provider Internal Medicine; Emergency Provider Emergency Medicine; PCP Family Medicine; Visit Provider Internal Medicine
DX: N17.0 Acute kidney failure with tubular necrosis (principal); D61.811 Other drug-induced pancytopenia; B37.0 Candidal stomatitis; C83.33 Diffuse large B-cell lymphoma, intra-abdominal lymph nodes; I50.32 Chronic diastolic (congestive) heart failure; J96.11 Chronic respiratory failure with hypoxia; D70.1 Agranulocytosis secondary to cancer chemotherapy; E86.0 Dehydration; T45.1X5A Adverse effect of antineoplastic and immunosuppressive drugs, initial encounter; K12.31 Oral mucositis (ulcerative) due to antineoplastic therapy; E87.5 Hyperkalemia; K74.60 Unspecified cirrhosis of liver; N18.31 Chronic kidney disease, stage 3a; Z99.81 Dependence on supplemental oxygen; E11.22 Type 2 diabetes mellitus with diabetic chronic kidney disease; E66.9 Obesity, unspecified; Z90.49 Acquired absence of other specified parts of digestive tract; Z98.890 Other specified postprocedural states; Z79.4 Long term (current) use of insulin; Z68.38 Body mass index [BMI] 38.0-38.9, adult; Z79.899 Other long term (current) drug therapy; Z87.891 Personal history of nicotine dependence
CPT/HCPCS: 36415; 76775; 80048; 80053; 81001; 82948; 84550; 85007; 85025; 85027; 87040; 87086; 87493; 93005; 94761; 96374; 96375; 99285; J0744; J1171; J1817; J2270